=== PATIENT | female | born 2005 | race Hispanic/Latino ===

== ENCOUNTER 2023-10-03 13:58 | Day surgery (SDC) | payer OTHER, MEDICAID, SELFPAY ==
--- NOTE | 2023-10-03 | PATH_ITS ---
[facility] Accession Number: [id number] No. of containers..01 Tissue . 01 Material submitted: . product of conception - PRODUCTS OF CONCEPTION . 01 Diagnosis: PRODUCTS OF CONCEPTION: Scant, poorly-preserved products of conception identified. MRV 10/11/2023 1622 Local . 01 Electronically signed: . Laura Shah MD, Pathologist NPI- [id number] . 01 Gross description: . PRODUCTS OF CONCEPTION: Received in formalin are multiple fragments of hemorrhagic spongy tissue measuring 4.0 x 4.0 x 1.0 cm in aggregate. parts are not identified. Entirely submitted in 6 cassettes. /CROW 10/11/2023 1600 Local . 01 Pathologist provided ICD-10: O02.1 . 01 CPT . 010680 Specimen Comment: A courtesy copy of this report has been sent to [phone] Performed at: 01 [facility] [address] [place] [id number] MD Dustin Reyes MD Phone: [phone]
[2023-10-03 14:30] VITALS: BMI 23.8
[2023-10-03] MEDS: LACTATED RINGERS 1,000 ML 42 ML IV (14:55)
--- NOTE | 2023-10-03 15:15 | SUR.OPER ---
Lithotomy on padded OR bed, head on pillow, arms secured on padded arm boards at <90 degrees abduction. Legs secured in padded yellow fins stirrups.
--- NOTE | 2023-10-03 15:57 | P.HPOB_ITS ---
History of Present Illness History of Present Illness Reason for admission: incomplete Narrative: Kailey Pineda is a 17 year old female 2 para 0 with retained products of conception. Received misoprostol for an elective termination. She has been bleeding since then. Heavier at times. She went to the emergency department in Tuesday and was found to have retained products conception on ultrasound. First ended in a spontaneous miscarriage. Patient does not know her blood type. [facility] Medical History (Updated 10/03/23 @ 14:28 by Kate Jolley RN) Asthma Aseptic meningitis Surgical History (Updated 10/03/23 @ 15:58 by Sharri Cortez MD) H/O oral surgery Social History household members: family Smoking Status: Never smoker alcohol intake: current Meds Home Medications and Allergies Allergies Allergy/AdvReac Type Severity Reaction Status Date / Time No Known Drug Allergies Allergy Verified 10/03/23 14:27 Exam Narrative Exam Narrative: HEENT: No thyromegaly, no anterior cervical or supraclavicular lymphadenopathy. Lungs:Clear to auscultation bilaterally, no wheezes. Cardiovascular: Regular rate and rhythm, no murmurs, rubs, or gallops. Abdomen: No scars. No hepatosplenomegaly. No masses palpable. External genitalia: Normal Vagina: Normal Cervix: Normal Bimanual exam: 7 Week size anteverted uterus. Mobile. Extremities: No edema Assessment & Plan Assessment & Plan narrative: Assessment: 17-year-old 2 para 0 with retained products of conception Unknown blood type Plan: Type and screen ordered Suction D&C The risks, benefits, and alternatives to the procedure were explained to the patient. The risks including bleeding, infection, and uterine perforation. She understands these risks and agrees to proceed. A full par Q was held and consent form was signed.
--- NOTE | 2023-10-03 15:59 | PM.PREOP ---
Pre-operative Note Interval Note History & Physical reviewed/Exam performed by Physician: Yes Changes to H&P: No H&P completed within 30 days and has changed as indicated here:: 10/03/23
--- NOTE | 2023-10-03 16:35 | P.OP_ITS ---
Operative Date/Time/Diagnoses Date of procedure: 10/03/23 Time of procedure: 16:35 Pre-op diagnosis: Retained products of conception Post-op diagnosis: same Procedure & Clinicians Procedure: Procedures Operation Date: 10/03/23 15:15 Actual Procedure Side Surgeon p Suction D&C Not Applicable Sharri Cortez MD Indications: Patient is a 17-year-old 2 para 0 who received misoprostol for a medical . She continued to bleed heavily 1 week later. She had an ultrasound done in Tuesday which showed retained products of conception. She presents for a suction D&C. Surgeon: Sharri Cortez Anesthesia Type: General (LMA) Operative Notes Findings: 8 week size anteverted uterus Large amount of products of conception Closure Type: not applicable Specimen(s): products of conception Estimated blood loss (mL): 50 Blood products transfused: none Procedure in detail: After informed consent was obtained, the patient was taken to the operating room where she was placed in the dorsal supine position. After adequate LMA general anesthesia was achieved, she was placed in the dorsal lithotomy position, and prepped and draped in the usual sterile fashion. A time-out was performed. A bivalve speculum was placed into the vagina and the anterior lip of the cervix was grasped with a single-tooth tenaculum. The cervical os was sequentially dilated until the #8 Hegar dilator could pass easily into the endometrial cavity . Several passes with suction revealed a large amount of tissue. Several more passes revealed blood only. The instruments were removed from the uterus. The single-tooth tenaculum was removed from the anterior lip of the cervix. The bivalve speculum was removed from the vagina. Sponge, lap, and instrument counts were correct x2. The patient tolerated the procedure well, and was taken to PACU in stable condition. Complications: none Post-operative Condition: stable Disposition: PACU Plan for aftercare: Home after recovery
[2023-10-03 16:56] VITALS: BP 101/63; PULSE 81; RESP 16; TEMP 36.8; O2SAT 98
[2023-10-03 17:06] VITALS: BP 99/55; PULSE 73; RESP 15; O2SAT 100
[2023-10-03 17:11] VITALS: BP 100/67; PULSE 65; RESP 14; O2SAT 100
[2023-10-03] MEDS: OXYCODONE IR 5 MG TABLET PO (17:15)
[2023-10-03 17:40] VITALS: BP 99/66; PULSE 69; RESP 16; TEMP 36.3; O2SAT 100
== END 2023-10-03 17:45 | disposition home or self-care (01) ==
PROVIDERS: Referring Provider Obstetrics & Gynecology; Visit Provider Obstetrics & Gynecology
PROC: (CPT 58120; principal; 2023-10-03 15:15)
DX: O03.4 Incomplete spontaneous abortion without complication (principal)
CPT/HCPCS: 59812; 86850; 86900; 86901; J1100; J1885; J2405; J2704; J3010